=== PATIENT | female | born 1985 | race Caucasian/White ===

== ENCOUNTER → 2016-11-11 | Outpatient (CLI) | payer OTHER ==
[~2016-11-11] VITALS: Ht 162.6 cm; Wt 58.1 kg
[~2016-11-11] MED LIST: ENDOCET 5-3251 EACH PO; FLONASE16 G1 BOTH NARES; IBUPROFEN800 MG PO; PRENATAL VITAM1 EA11 PO
[2016-11-11 18:16] VITALS: BP 106/63
== END | disposition home or self-care (01) ==
LOC: IVINF 17:00
DX: O36.0990 Maternal care for other rhesus isoimmunization, unspecified trimester, not applicable or unspecified (principal); O20.0 Threatened abortion
CPT/HCPCS: 96372; J2790